=== PATIENT | female | born 1980 | race Caucasian/White ===

== ENCOUNTER 2023-02-01 21:10 | Emergency (ER) | payer OTHER, MEDICAID ==
[~2023-02-01] VITALS: Ht 154.9 cm; Wt 107.0 kg
[2023-02-01 22:01] VITALS: BP_SYST 137
--- NOTE | 2023-02-01 22:15 | NUR ---
URINE SENT TO LAB AT THIS TIME, PATIENT IN WAITING ROOM
[2023-02-01 23:13] LABS: BILIRUBIN,URINE 1+ (NEGATIVE); BLOOD, URINE 3+ (NEGATIVE); COLOR,URINE YELLOW (YELLOW); GLUCOSE,URINE NEGATIVE (NEGATIVE); KETONES,URINE 1+ (NEGATIVE); LEUKOCYTE ESTERASE ,URINE 2+ (NEGATIVE); NITRITE, URINE NEGATIVE (NEGATIVE); PH,URINE 5.5 (5.0-8.0); PROTEIN URINE 1+ (NEGATIVE); UROBILINOGEN,URINE 0.2 (0.2-1.0)
[2023-02-01 23:15] LABS: CLARITY/URINE SLIGHTLY CLOUDY (CLEAR)
[2023-02-01 23:27] LABS: RBC,URINE 20-50 /HPF (0-3)
[2023-02-01 23:28] LABS: BACTERIA,URINE RARE /HPF (None Seen)
[2023-02-01 23:49] LABS: BASOPHILS % (AUTO) 0.3 % (0.0-2.0); EOSINOPHILS # (AUTO) 0.1 K/uL (0.0-0.4); EOSINOPHILS % (AUTO) 1.2 % (0.0-4.0); HEMOGLOBIN 12.1 g/dL (12.0-16.0); LYMPHOCYTES # (AUTO) 3.7 K/uL (1.0-5.5); LYMPHOCYTES % (AUTO) 31.5 % (20.5-51.5); MEAN CORPUSCULAR HEMOGLOBIN 29 pg (27-31); MEAN CORPUSCULAR HGB CONC 34 % (32-36); MEAN CORPUSCULAR VOLUME 87 fL (79.0-98.0); MONOCYTES # (AUTO) 0.6 K/uL (0.0-1.0); MONOCYTES % (AUTO) 5.3 % (1.7-9.3); NEUTROPHILS # (AUTO) 7.2 K/uL (1.8-7.7); NEUTROPHILS % (AUTO) 61.7 % (40.0-70.0); PLATELET COUNT (AUTO) 241 K/uL (130-430); RED BLOOD CELL COUNT(AUTO) 4.13 MIL/uL (4.2-6.2); RED CELL DISTRIBUTION WIDTH 14.1 % (9.0-15.0); WHITE BLOOD COUNT (AUTO) 11.7 K/uL (4.8-10.8)
[2023-02-02] MEDS ORDERED: cephALEXin 500 MG CAPSULE PO ONE (00:45)
[2023-02-02] MEDS ORDERED: ACETAMINOPHEN 500 MG TABLET PO ONE (00:45)
[2023-02-02] MEDS ORDERED: CEPH-548 PO (00:47)
[2023-02-02] MEDS ORDERED: PHEN-890 PO (00:47)
--- NOTE | 2023-02-02 00:57 | NUR ---
Patient to ER bed 7 to gown for evaluation. Side rails up. Report given to Diandra lake.
--- NOTE | 2023-02-02 01:08 | NUR ---
Patient given written and verbal discharge instructions and verbalizes understanding. ER MD discussed with patient the results and treatment provided. Patient in stable condition. ID arm band removed. Rx of given. Patient educated on pain management and to follow up with PMD. Pain Scale 5/10.Opportunity for questions provided and answered. Medication side effect fact sheet provided. PATIENT INSTRUCTED TO FOLLOW UP WITH HER OB, MD NOTED AT BEDSIDE FOR DISCHARGE INSTRUCTIONS, PATIENT NOTED WALKING WITH STEADY GAIT TOWARDS PRIVATE CAR
[2023-02-02 01:13] VITALS: BP_SYST 123
== END 2023-02-02 01:13 | disposition home or self-care (01) ==
LOC: SED 21:10
DX: O20.0 Threatened abortion (principal); O26.891 Other specified pregnancy related conditions, first trimester; Z3A.01 Less than 8 weeks gestation of pregnancy; Z79.899 Other long term (current) drug therapy
CPT/HCPCS: 36415; 76856-TC; 81000; 81025; 84702; 85025; 86900; 86901; 87086; 99284

== ENCOUNTER 2023-04-05 17:56 | Emergency (ER) | payer MEDICARE, MEDICAID ==
[~2023-04-05] VITALS: Ht 154.9 cm; Wt 105.2 kg
[~2023-04-05 17:56] MED LIST: CEPH-548 PO; PHEN-890 PO
[2023-04-05 18:15] VITALS: BP_SYST 123; PULSE 91; RESP 18; TEMP 98; O2SAT 96
[2023-04-05 20:11] VITALS: BP_SYST 123; PULSE 91; RESP 18; TEMP 98; O2SAT 96
[2023-04-05] MEDS ORDERED: IBUPROFEN 600 MG TABLET PO ONE (20:15)
== END 2023-04-05 20:11 | disposition home or self-care (01) ==
LOC: SED 17:56
DX: S93.402A Sprain of unspecified ligament of left ankle, initial encounter (principal); E11.9 Type 2 diabetes mellitus without complications; Z79.899 Other long term (current) drug therapy; W10.8XXA Fall (on) (from) other stairs and steps, initial encounter; Y93.89 Activity, other specified; Y92.89 Other specified places as the place of occurrence of the external cause; Y99.8 Other external cause status
CPT/HCPCS: 99283